=== PATIENT | female | born 1975 | race Caucasian/White ===

== ENCOUNTER 2021-03-31 22:30 | Emergency (ER) | payer OTHER ==
[~2021-03-31] VITALS: Ht 160 cm; Wt 63.5 kg
[~2021-03-31 22:30] MED LIST: CIPROFLOXACIN500 M1 PO; DIFLUCAN; NORCO 5-325 TA1 EACH PO
[2021-03-31 22:55] LABS: ABSOLUTE BASOPHILS 0.1 thou/uL (0.0-0.2); ABSOLUTE EOSINOPHILS 0.3 thou/uL (0.0-0.7); ABSOLUTE MONOCYTES 0.8 thou/uL (0.0-1.2); ABSOLUTE NEUTROPHILS 6.3 thou/uL (1.6-8.1); EOSINOPHILS 3.1 %; HEMATOCRIT 43.9 % (37.0-47.0); HEMOGLOBIN 15.1 gm/dL (12.0-15.0); LYMPHOCYTES 28.6 %; MCH 31.6 pg (26.0-34.0); MCHC 34.5 g/dL (28.0-37.0); MCV 91.5 fL (80.0-100.0); MONOCYTES 7.2 %; MPV 7.3 fl. (7.2-11.1); NUCLEATED RBCS 0 /100WBC; PLATELET COUNT* 406 thou/uL (150-400); POLYS 60.1 %; RDW-CV 13.1 % (10.5-14.5); WBC 10.6 thou/uL (4.0-11.0)
[2021-03-31 23:03] LABS: CALCIUM 8.3 mg/dL (8.5-10.1); CREATININE 0.9 mg/dL (0.6-1.3); POTASSIUM 3.3 mmol/L (3.5-5.1)
[2021-03-31 23:14] LABS: ALBUMIN 4.1 g/dL (3.4-5.0); TOTAL BILIRUBIN 0.2 mg/dL (<0.1-1.0); TOTAL PROTEIN 7.2 g/dL (6.4-8.2)
[2021-03-31 23:38] LABS: URINE BILIRUBIN NEGATIVE (Negative); URINE BLOOD NEGATIVE (Negative); URINE CLARITY CLEAR; URINE COLOR STRAW; URINE GLUCOSE-RANDOM NEGATIVE (Negative); URINE KETONES NEGATIVE (Negative); URINE LEUKOCYTES-REFLEX NEGATIVE (Negative); URINE NITRITE-REFLEX NEGATIVE (Negative); URINE PROTEIN NEGATIVE (Negative); URINE SPECIFIC GRAVITY <= 1.005 (1.005-1.030); URINE UROBILINOGEN 0.2 E.U./dl (0.2-1.0)
[2021-04-01 01:44] VITALS: BP 98/58
--- NOTE | 2021-04-02 10:35 | EKG ---
[place] [address] ELECTROCARDIOGRAM REPORT Name: YOLIS VELA Room: [facility]#: [id number] Admission: 03/31/21 Attend Phys: Discharge: 04/01/21 Date of : 79 Date of Service: 03/31/212229 Report #: [id number] THIS REPORT FOR: //name// [facility] ED Test Date: 2021-03-31 Test Time: 22:30:35 Pat Name: YOLIS VELA Department: Room: Gender: Kennel Keeper: AMT : 1975 Requested By: Mary Clay Order Number: [id number] MD: Tae Tellez Measurements Intervals [place] Rate: 83 P: 61 MD: 204 QRS: 76 QRSD: 115 T: 13 QT: 475 QTc: 559 Interpretive Statements Sinus rhythm Borderline prolonged MD interval Nonspecific intraventricular conduction delay Nonspecific T abnormalities, anterior leads No previous ECG available for comparison Electronically Signed On 04-02-2021 10:35:24 CDT by Tae Tellez [email or web address] <ELECTRONICALLY SIGNED> By: Tae Tellez MD, [facility] 04/02/21 1035 29 29 Tae Tellez MD, [facility] /EPI
== END 2021-04-01 01:45 | disposition home or self-care (01) ==
LOC: M.ERS 22:30
PROVIDERS: Emergency Medicine
DX: R07.89 Other chest pain (principal); F17.210 Nicotine dependence, cigarettes, uncomplicated; Z90.49 Acquired absence of other specified parts of digestive tract; Z90.710 Acquired absence of both cervix and uterus; Z79.899 Other long term (current) drug therapy; Z88.0 Allergy status to penicillin